=== PATIENT | male | born 1995 | race Caucasian/White ===

== ENCOUNTER 2017-08-05 21:06 | Emergency (ER) | payer SELFPAY ==
[2017-08-05 21:19] VITALS: BP 133/94; PULSE 107; RESP 16; TEMP 36.7; O2SAT 99; BMI 31.4
--- NOTE | 2017-08-05 23:43 | HMH.EDSKAF ---
ED Disposition Clinical Impression: Cellulitis Qualifiers: Site of cellulitis: extremity Site of cellulitis of extremity: lower extremity Laterality: left Qualified Code(s): L03.116 - Cellulitis of left lower limb Disposition: Home, Self-Care Condition on Discharge: Good Instructions: Cellulitis Additional Instructions: use meds and see pcp for follow up Prescriptions: Minocycline HCl 100 mg PO BID #20 tab Mupirocin [Bactroban 2% Ointment 22gm tube] 1 applicatio TP BID #1 tube Sulfamethoxazole/Trimethoprim [Bactrim DS tablet] 1 each PO BID #20 tab - Critical Care Critical Care Time: No Attestation: On 08/05/17, the high probability of a clinically significant, sudden or life threatening deterioration of the following system(s) required my full and direct attention, intervention and personal management. The time I documented below is in addition to time spent performing reported procedures but includes the following listed in this critical care notation. Medical Decision Making - Medical Records Medical records reviewed: Yes: I reviewed the patient's medical records. Vital Signs: 08/05/17 21:19 Temperature 98.1 F Temperature Source Oral Pulse Rate [Left Radial] 107 H Respiratory Rate 16 Blood Pressure [Right Arm] 133/94 Blood Pressure Mean [Right Arm] 107 Blood Pressure Source [Right Arm] Automatic Cuff Blood Pressure Position [Right Arm] Sitting 02 Sat by Pulse Oximetry 99 Oxygen Delivery Method Room Air - Elliott Inquiry Pt receiving controlled substance: No Skin/Abscess/FB HPI - General Chief complaint: Skin/Abscess/Foreign Body Stated complaint: LEFT LEG A SPOT Time Seen by Provider: 08/05/17 23:44 Mode of Arrival: Ambulatory Source of Information: Patient, Significant Other, Medical Record Limitations: No Limitations Description of Symptoms (Recalled from ER Triage Doc. by RN): possible abscess to left knee - History of Present Illness HPI narrative: area on lt thigh over the last few days MD complaint: abscess/boil Onset (ago): day(s) Location: LLE Severity: moderate Treatments prior to arrival: OTC topical medication - Related Data Previous Rx's Medication Instructions Recorded Minocycline HCl 100 mg PO BID #20 tab 08/05/17 Mupirocin [Bactroban 2% Ointment 1 applicatio TP BID #1 tube 08/05/17 22gm tube] Sulfamethoxazole/Trimethoprim 1 each PO BID #20 tab 08/05/17 [Bactrim DS tablet] Allergies Allergy/AdvReac Type Severity Reaction Status Date / Time NO KNOWN ALLERGIES Allergy Uncoded 07/14/17 15:00 [facility] History I have reviewed the patient's past medical history: Yes Medical History: Denies:: Cancer, Diabetes Mellitus Type 1, Diabetes Mellitus Type 2, MRSA Amputation: No Fractures: Yes (left forearm fx) - *Social History Educational Level: Completed High School Alcohol Intake: never - Psychiatric History Expresses thoughts of harming self/others: None Suicide Plan Description: No Plan ROS Obtained: Yes All systems reviewed & no additional complaints - Constitutional Constitutional: Denies fever(s) - Eyes Eyes: Denies change in vision - ENT Ears, Nose, Mouth, and Throat: Denies sore throat - Cardiovascular Cardiovascular: Denies chest pain - Respiratory Respiratory: No cough - Gastrointestinal Gastrointestingal: Denies: nausea - Musculoskeletal Musculoskeletal: Denies joint pain, Denies joint stiffness - Integumentary/Breasts Skin/Breast: Denies boil, Reports rash - Neurologic Neurologic: Denies tingling/numbness/burning sensations, Denies seizure-like activity Physical Exam - General General appearance: alert, in no apparent distress - Head Head exam: atraumatic, normocephalic - Eye Eye exam: Present: PERRL, EOMI - ENT ENT exam: Present: mucous membranes moist - Neck Neck exam: Present: full ROM - Respiratory Respiratory exam: Absent: respiratory distress - Cardiovascular Cardiovascular ex
--- NOTE | 2017-08-05 23:47 | ED_ITS ---
ED Disposition Clinical Impression: Cellulitis Qualifiers: Site of cellulitis: extremity Site of cellulitis of extremity: lower extremity Laterality: left Qualified Code(s): L03.116 - Cellulitis of left lower limb Disposition: Home, Self-Care Condition on Discharge: Good Instructions: Cellulitis Additional Instructions: use meds and see pcp for follow up Prescriptions: Minocycline HCl 100 mg PO BID #20 tab Mupirocin [Bactroban 2% Ointment 22gm tube] 1 applicatio TP BID #1 tube Sulfamethoxazole/Trimethoprim [Bactrim DS tablet] 1 each PO BID #20 tab - Critical Care Critical Care Time: No Attestation: On 08/05/17, the high probability of a clinically significant, sudden or life threatening deterioration of the following system(s) required my full and direct attention, intervention and personal management. The time I documented below is in addition to time spent performing reported procedures but includes the following listed in this critical care notation. Medical Decision Making - Medical Records Medical records reviewed: Yes: I reviewed the patient's medical records. Vital Signs: 08/05/17 21:19 Temperature 98.1 F Temperature Source Oral Pulse Rate [Left Radial] 107 H Respiratory Rate 16 Blood Pressure [Right Arm] 133/94 Blood Pressure Mean [Right Arm] 107 Blood Pressure Source [Right Arm] Automatic Cuff Blood Pressure Position [Right Arm] Sitting 02 Sat by Pulse Oximetry 99 Oxygen Delivery Method Room Air - Elliott Inquiry Pt receiving controlled substance: No Skin/Abscess/FB HPI - General Chief complaint: Skin/Abscess/Foreign Body Stated complaint: LEFT LEG A SPOT Time Seen by Provider: 08/05/17 23:44 Mode of Arrival: Ambulatory Source of Information: Patient, Significant Other, Medical Record Limitations: No Limitations Description of Symptoms (Recalled from ER Triage Doc. by RN): possible abscess to left knee - History of Present Illness HPI narrative: area on lt thigh over the last few days MD complaint: abscess/boil Onset (ago): day(s) Location: LLE Severity: moderate Treatments prior to arrival: OTC topical medication - Related Data Previous Rx's Medication Instructions Recorded Minocycline HCl 100 mg PO BID #20 tab 08/05/17 Mupirocin [Bactroban 2% Ointment 1 applicatio TP BID #1 tube 08/05/17 22gm tube] Sulfamethoxazole/Trimethoprim 1 each PO BID #20 tab 08/05/17 [Bactrim DS tablet] Allergies Allergy/AdvReac Type Severity Reaction Status Date / Time NO KNOWN ALLERGIES Allergy Uncoded 07/14/17 15:00 [facility] History I have reviewed the patient's past medical history: Yes Medical History: Denies:: Cancer, Diabetes Mellitus Type 1, Diabetes Mellitus Type 2, MRSA Amputation: No Fractures: Yes (left forearm fx) - *Social History Educational Level: Completed High School Alcohol Intake: never - Psychiatric History Expresses thoughts of harming self/others: None Suicide Plan Description: No Plan ROS Obtained: Yes All systems reviewed & no additional complaints - Constitutional Constitutional: Denies fever(s) - Eyes Eyes: Denies change in vision - ENT Ears, Nose, Mouth, and Throat: Denies sore throat - Cardiovascular Cardiovascular: Denies chest pain - Respiratory Respiratory: No cough
[2017-08-06 00:04] VITALS: BP 126/80; PULSE 80; RESP 16; TEMP 37.1; O2SAT 99
== END 2017-08-06 00:06 | disposition home or self-care (01) ==
PROVIDERS: Emergency Provider Emergency Medicine; Family Provider Internal Medicine Adolescent Medicine
DX: L03.116 Cellulitis of left lower limb (principal)
CPT/HCPCS: 99282

== ENCOUNTER → 2021-08-20 08:33 | Outpatient (CLI) | payer OTHER, SELFPAY | PROVIDERS: Visit Provider Nurse Practitioner | DX: U07.1 COVID-19 (principal) | CPT/HCPCS: C9803; U0003; U0005 ==

== ENCOUNTER 2021-10-22 15:55 | Emergency (ER) | payer OTHER, SELFPAY ==
[2021-10-22 16:13] VITALS: BP 132/80; PULSE 99; RESP 16; TEMP 36.9; O2SAT 99; BMI 44.6
[2021-10-22 17:34] VITALS: BP 132/80; PULSE 99; RESP 16; TEMP 36.9
== END 2021-10-22 17:35 | disposition left against medical advice (07) ==
LOC: UTC 16:33
PROVIDERS: Emergency Provider Nurse Practitioner
DX: Z53.21 Procedure and treatment not carried out due to patient leaving prior to being seen by health care provider (principal); S61.012A Laceration without foreign body of left thumb without damage to nail, initial encounter